=== PATIENT | female | born 1985 | race Two or more races ===

== ENCOUNTER 2017-06-01 11:22 | Outpatient (CLI) | payer OTHER ==
[~2017-06-01] VITALS: Ht 162.6 cm; Wt 65.9 kg
[2017-06-01] MEDS ORDERED: FERROUS SULFAT325 MG PO (16:42)
[2017-06-01 16:43] VITALS: BP 117/73; Ht 162.6 cm; Wt 65.9 kg
--- NOTE | 2017-06-01 16:57 | NUR ---
1657 TO HOME AMBULATED.
--- NOTE | 2017-06-01 16:57 | NUR ---
1651 HEPATITIS B VACCINE GIVEN 10 MG R DELTOID PER MD ORDER, HEPATITIS B INFORMATION GIVEN.
--- NOTE | 2017-06-01 16:59 | NUR ---
1658 INSTRUCTED TO RETURN FOR NEXT VACCINE INSTRUCTED PER DR. HAIR AND TO CALL FOR ANY PROBLEMS OR CONCERNS.
== END 2017-06-01 16:58 | disposition home or self-care (01) ==
LOC: D.OPS 11:22
DX: Z23 Encounter for immunization (principal)

== ENCOUNTER → 2017-12-03 14:42 | Outpatient (CLI) | payer BC ==
[2017-06-01 16:43] VITALS: BMI 24.9
[~2017-12-03 14:42] MED LIST: FERROUS SULFAT325 MG PO
== END | disposition home or self-care (01) ==
LOC: D.RAD 14:42
DX: M79.642 Pain in left hand (principal)

== ENCOUNTER 2018-01-10 05:43 | Day surgery (SDC) | payer BC ==
[2018-01-09 14:48] LABS: HEMATOCRIT 36.4 % (36.0-48.0); HEMOGLOBIN 12.1 g/dL (12-16); MCH 28.6 pg (26.0-34.0); MCHC 33.2 g/dL (31.0-37.0); MCV 86.1 fL (80.0-100.0); MEAN PLATELET VOLUME 10.1 fL (7.4-10.4); RBC 4.23 10x6/uL (4.00-5.40); RDW 13.1 % (11.5-14.5); WBC 9.2 10x3/uL (4.8-10.8)
[~2018-01-10] VITALS: Ht 161.3 cm; Wt 72.1 kg
--- NOTE | ~2018-01-10 | OP ---
PATIENT NAME: HECTOR NIETO MEDICAL RECORD: [id number] :87 LOCATION:D.OPS ADMISSION DATE: SURGEON: SHAYE SEARS MD DATE OF OPERATION: 01/10/2018 PREOPERATIVE DIAGNOSES: 1. Painful nodular cyst right hand palmar aspect over palmar cyst at the second MCP joint. 2. Painful os naviculare, left foot. PROCEDURE: 1. Excision of cyst, right hand palmar aspect. 2. Excision of painful os naviculare, left foot medial. SURGEON: Shaye Sears MD ANESTHESIA: General. INTRAOPERATIVE COMPLICATIONS: None. 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 This was removed in its entirety and sent for pathology. Furthermore, the patient was found to have a protruding accessory os naviculare that had caused shoe pain. This was removed as well. OPERATIVE SUMMARY IN DETAIL: After obtaining the appropriate preoperative orthopedic surgery consent as well as anesthetic consultation, evaluation and clearance, the patient was brought to the operating room and placed on the table in supine position. After general anesthesia was administered, tourniquet was placed about the proximal aspect of the right upper extremity, the left lower extremity. Right upper extremity was approached first. Arm was elevated and exsanguinated, tourniquet inflated to 250 mmHg. An incision was made directly over the palpable nodule. Subq fat dissection was carried down to the A1 bebeto sheath where this white palpable nodule was clearly identifiable. It was excised around what I consider to be a tight A1 bebeto sheath and the A1 bebeto was released in its entirety. The excised nodule was sent for permanent specimen. Wound was then irrigated and closed with 4-0 Prolene in running fashion. The area was locally anesthetized with 0.5% Marcaine. Sterile dressings were applied. Tourniquet was deflated. Attention was then turned to the foot. Likewise, the foot was elevated, exsanguinated, tourniquet was inflated to 250 mmHg. A small incision was made directly over the painful prominent os naviculare. Subperiosteal dissection was then carried around the most prominent aspect of it and then it was shaved cleanly off with hand osteotome. Wound was then irrigated and closed in 2 layers with 2-0 Vicryl to close the subperiosteal layer and then 4-0 Prolene for final skin closure. Again, sterile dressings were applied. Tourniquet was deflated. The patient was awakened and taken to recovery room in stable condition. All final needle and sponge counts were correct. TRANSINT:[id number] Voice Confirmation ID: [id number] DOCUMENT ID: [id number] OPERATIVE REPORT [id number] HECTOR NIETO MD, SHAYE MEANS at 1535 CC: [id number] DICTATION DATE: 01/10/18 1059 MANAGER PERFORMANCE: 01/10/[address] [facility] [place] 01/10/18 [id number] [place] [id number]
[~2018-01-10 05:43] MED LIST changes: +LIPITOR20 MG PO
[2018-01-10 09:11] VITALS: BP 108/50; Ht 161.3 cm; Wt 72.1 kg
[2018-01-10] MEDS ORDERED: HYDROCODONE-APA1 TAB PO (10:56)
== END 2018-01-10 12:45 | disposition home or self-care (01) ==
LOC: D.OPS 05:43 → D.PAN 08:50 → D.OPS 12:30 → D.PAN 12:30 → D.OPS 12:45 → D.PAN 13:35
PROVIDERS: Anesthesiology
DX: M71.342 Other bursal cyst, left hand (principal); Q74.2 Other congenital malformations of lower limb(s), including pelvic girdle; Z01.812 Encounter for preprocedural laboratory examination